=== PATIENT | male | born 1970 | race Caucasian/White ===

== ENCOUNTER 2016-07-20 20:52 | Emergency (ER) | payer BC ==
[2016-07-20 21:12] VITALS: TEMP 98.2; O2SAT 99
[2016-07-20] MEDS ORDERED: Magnesium Citrate Oral SOL (300 ml) PO ONE (22:31)
[2016-07-20] MEDS ORDERED: Magnesium Citrate Oral SOL (300 ml) ONE (22:43)
--- NOTE | 2016-07-20 22:47 | C.PDOC ---
History Of Present Illness 46 y/o male presents to ED with c/o constipation for 4 days. Patient notes he has been taking Percocet every 4 hours status post varicocelectomy on 07/16/16. Patient reports he has not had bowel movement since procedure. Patient states he is passing gas but reports feels full. Denies fever, chills, or vomiting. Time Seen by Provider: 07/20/16 21:21 Chief Complaint (Nursing): GI Problem History Per: Patient History/Exam Limitations: no limitations Onset/Duration Of Symptoms: Days Current Symptoms Are (Timing): Still Present Recent travel outside of the [place]: No Past Medical History Reviewed: Historical Data, Nursing Documentation, Vital Signs Vital Signs: Last Vital Signs Temp 98.2 F 07/20/16 21:04 Pulse 82 07/20/16 23:30 Resp 18 07/20/16 23:30 BP 128/82 07/20/16 23:30 Pulse Ox 99 07/20/16 23:30 Family History: States: Unknown Family Hx - Social History Hx Alcohol Use: Yes Hx Substance Use: No - Immunization History Hx Tetanus Toxoid Vaccination: No Hx Influenza Vaccination: No Hx Pneumococcal Vaccination: No Review Of Systems Except As Marked, All Systems Reviewed And Found Negative. Constitutional: Negative for: Fever, Chills Respiratory: Negative for: Cough Gastrointestinal: Positive for: Constipation. Negative for: Nausea, Vomiting, Abdominal Pain, Melena, Rectal Pain Musculoskeletal: Negative for: Back Pain Skin: Negative for: Rash Neurological: Negative for: Headache, Dizziness Physical Exam - Physical Exam Appears: Non-toxic, No Acute Distress Skin: Normal Color, Warm, Dry Head: Atraumatic, Normacephalic Eye(s): bilateral: Normal Inspection, EOMI Nose: Normal Oral Mucosa: Moist Chest: Symmetrical Cardiovascular: Rhythm Regular Respiratory: Normal Breath Sounds, No Rales, No Rhonchi, No Wheezing Gastrointestinal/Abdominal: Soft, No Tenderness, No Guarding, No Rebound, Other ( bilateral superpubic dressings - clean and intact) Back: Normal Inspection Extremity: Normal ROM, Capillary Refill (< 2 sec.) Neurological/Psych: Oriented x3, Normal Speech, Normal Cognition ED Course And Treatment O2 Sat by Pulse Oximetry: 99 (RA) Pulse Ox Interpretation: Normal - Other Rad Obstructive Series XR X-Ray: Interpreted by Me, Viewed By Me Interpretation: +FOS, questionable air fluid levels Progress Note: Case discussed with Dr. López, who evaluated x-ray, and agreed upon plan and treatment. Patient shows no clinical signs of obstruction, including no abdominal pain or vomiting. Mg citrate and enema given in ER. Pt had three large bowel movements in the ED, feels much better. NO blood in stool. No abdominal pain. No vomiting. Disposition - Disposition Disposition: HOME/ ROUTINE Disposition Time: 23:15 Condition: STABLE Additional Instructions: Stop use of narcotics. Increase fiber and water in your diet. Prescriptions: Psyllium Husk [Metamucil] 1.7 gm PO DAILY #1 powder Instructions: Constipation (ED) - Clinical Impression Clinical Impression: Constipation - PA / [employer] / Resident Statement MD/DO has reviewed & agrees with the documentation as recorded. - Scribe Statement The provider has reviewed the documentation as recorded by the Scribe Ralph Shoemaker All medical record entries made by the Scribe were at my direction and personally dictated by me. I have reviewed the chart and agree that the record accurately reflects my personal performance of the history, physical exam, medical decision making, and the department course for this patient. I have also personally directed, reviewed, and agree with the discharge instructions and disposition.
[2016-07-21 00:12] VITALS: BP 128/82; PULSE 82; RESP 18
--- NOTE | 2016-07-21 09:31 | RAD ---
PROCEDURE: Radiographs of the chest and abdomen (obstructive series) HISTORY: bloated COMPARISON: No prior. TECHNIQUE: AP radiograph of the chest, with upright and supine radiographs of the abdomen. FINDINGS: CHEST: Lungs: Clear. Cardiovascular: Normal size heart. No pulmonary vascular congestion. Pleura: No pleural fluid. No pneumothorax. Other findings: None. ABDOMEN AND PELVIS: Bowel: There are small air-fluid levels in the abdomen. No free intraperitoneal air Free air: None. Bones: Unremarkable. Other findings: There are skin sathya overlying the lower pelvis. IMPRESSION: Clear lungs. Small air-fluid levels in the abdomen could represent postoperative ileus or nonspecific gastroenteritis. Follow-up is advised.
== END 2016-07-21 00:12 | disposition home or self-care (01) ==
LOC: C.ER 20:52 → MERGE 20:52 → C.ER 07-21 00:12
DX: K59.00 Constipation, unspecified (principal)